=== PATIENT | male | born 1975 | race Caucasian/White ===

== ENCOUNTER 2017-11-29 14:12 | Emergency (ER) | payer OTHER ==
[~2017-11-29] VITALS: Ht 180.3 cm; Wt 74.8 kg
[~2017-11-29 14:12] MED LIST: ALBU90OI INH; ALBU90OI61 INH; AMOCLA875 PO; AMOX500 PO; AMOXICILLIN; AZIT250 PO; BENTYL20 MG PO; BENZ100A PO; Baclofen10 MG PO; Bactrim Ds Tab1 EACH PO; CEPH500 PO; CODGUAEL PO; CYCL10 PO; Cyclobenzaprine5 MG PO; DIAZ5 PO; DICY20 PO; FAMO40 PO; Flexeril 10 mg10 MG PO; GUAI120S1 PO; HYDACE25S PR; HYDACE5 PO; HYDR1TAB94 PO; IBUP200 PO; IBUP800 PO; METO5A PO; METR500 PO; Motrin600 MG PO; NAPR500 PO; NAPR550 PO; NO ROUTINE MEDS; Naprosyn500 MG PO; Norco 5-325 Ta1 EACH PO; OXYACE5T PO; PANT40 PO; PENVK500 PO; PERIDEX15 ML MM; PRED20 PO; PROM25 PO; PSEU120ER PO; Percocet 5-3251 EACH PO; Prednisone20 MG PO; Prilosec20 MG PO; RXHYDACE PO; RXOXYACE PO; RXTRAM50 PO; Robaxin-750750 MG PO; Robaxin500 MG PO; SPACER IH; SULTRIDS PO; SULTRISS PO; Sudogest30 MG PO; TRAM50 PO; Ultram50 MG PO; Veetids 500500 MG PO; Zofran Odt8 MG PO; [UNRECOGNIZED DRUG - REMARK]
[2017-11-29] MEDS ORDERED: KETO10 PO (14:50)
[2017-11-29] MEDS ORDERED: CYCL10 PO (14:50)
== END 2017-11-29 14:55 | disposition home or self-care (01) ==
LOC: ER 14:12
DX: S16.1XXA Strain of muscle, fascia and tendon at neck level, initial encounter (principal); S46.011A Strain of muscle(s) and tendon(s) of the rotator cuff of right shoulder, initial encounter; W18.30XA Fall on same level, unspecified, initial encounter; Z88.5 Allergy status to narcotic agent; Z88.8 Allergy status to other drugs, medicaments and biological substances; F17.210 Nicotine dependence, cigarettes, uncomplicated
CPT/HCPCS: 99283

== ENCOUNTER 2022-08-28 11:36 | Inpatient (IN) | payer OTHER ==
[~2022-08-28] VITALS: Ht 180.3 cm; Wt 86.6 kg
[~2022-08-28 11:36] MED LIST changes: +KETO10 PO
[2022-08-28 12:16] LABS: BASOPHILS ABSOLUTE AUTO 0.06 K/mm3 (0.00-0.23); BASOPHILS PERCENT AUTO 1 % (0-2); EOSINOPHILS PERCENT AUTO 2 % (0-6); Hematocrit 40.2 % (37.0-53.0); Hemoglobin 13.7 g/dL (13.5-17.5); IMMATURE GRAN ABSOLUTE AUTO 0.02 K/mm3 (0.00-0.10); IMMATURE GRAN PERCENT AUTO 0 % (0-1); LYMPHOCYTES ABSOLUTE AUTO 2.17 K/mm3 (0.84-5.20); LYMPHOCYTES PERCENT AUTO 34 % (21-46); MONOCYTES ABSOLUTE AUTO 0.43 K/mm3 (0.16-1.47); MONOCYTES PERCENT AUTO 7 % (4-13); Mean Corpuscular HGB 28.9 pg (26.0-34.0); Mean Corpuscular HGB Conc 34.1 g/dL (31.5-36.5); Mean Corpuscular Volume 85 fL (80-100); Mean Platelet Volume 12.2 fL (9.1-12.4); NEUTROPHILS ABSOLUTE AUTO 3.57 K/mm3 (1.96-9.15); NEUTROPHILS PERCENT AUTO 56 % (41-73); Platelet Count 229 K/mm3 (150-400); RDW Coefficient Variation 12.8 % (11.7-14.2); RDW Standard Deviation 39.5 fL (35.1-46.3); Red Blood Cell Count 4.74 M/mm3 (4.30-5.90); White Blood Cell Count 6.35 K/mm3 (4.00-11.30)
[2022-08-28 12:41] LABS: Magnesium, Blood 1.8 mg/dL (1.6-2.4)
[2022-08-28 12:48] LABS: Albumin, Blood 3.5 g/dL (3.4-5.0); Albumin/Globulin Ratio 0.9 (0.8-1.8); Bilirubin, Total 0.8 mg/dL (0.1-1.0); Bun/Creatinine Ratio 11.8 (12.0-20.0); Calcium, Blood 8.7 mg/dL (8.5-10.1); Creatinine, Blood 0.51 mg/dL (0.60-1.20); Globulin, Blood 3.8 g/dL (2.2-4.0); Potassium, Blood 2.8 mmol/L (3.5-5.5); Total Protein, Blood 7.3 g/dL (6.4-8.2)
[2022-08-28] MEDS ORDERED: METH40 PO (12:54)
[2022-08-28 13:15] LABS: Base Excess Venous 4.3 mmol/L; Bicarbonate Venous 27.9 mmol/L (24.0-30.0); PCO2 Venous 40.8 mmHg (38-42); pH Blood Venous 7.45 (7.34-7.37)
[2022-08-28 16:50] LABS: Calcium, Blood 8.8 mg/dL (8.5-10.1); Creatinine, Blood 0.5 mg/dL (0.60-1.20); Potassium, Blood 2.8 mmol/L (3.5-5.5)
[2022-08-28 20:59] VITALS: BP 116/55
[2022-08-28 23:51] VITALS: BP 120/75
[2022-08-29 03:26] VITALS: BP 119/89
[2022-08-29 03:42] LABS: Hematocrit 38.5 % (37.0-53.0); Hemoglobin 13.1 g/dL (13.5-17.5); Mean Corpuscular HGB 29.1 pg (26.0-34.0); Mean Corpuscular Volume 86 fL (80-100); Mean Platelet Volume 11.9 fL (9.1-12.4); Platelet Count 197 K/mm3 (150-400); RDW Coefficient Variation 13.2 % (11.7-14.2); RDW Standard Deviation 40.8 fL (35.1-46.3); White Blood Cell Count 6.22 K/mm3 (4.00-11.30)
[2022-08-29 04:12] LABS: Bun/Creatinine Ratio 12.4 (12.0-20.0); Calcium, Blood 8.3 mg/dL (8.5-10.1); Creatinine, Blood 0.4 mg/dL (0.60-1.20); Potassium, Blood 3.3 mmol/L (3.5-5.5)
--- NOTE | 2022-08-29 05:55 | NUR ---
SHIFT SUMMARY PT A&Ox4, VERY LETHARGIC, BUT COMMUNICATES NEEDS APPROPRIATELY. PT WEAK WHEN AMBULATING TO BATHROOM BUT INSISTS ON GOING INTO BATHROOM RATHER THAN USING BSC. PT 2 ASSIST TO GET AMBULATE. BP STABLE, SINUS 70's, DENIES CP/PRESSURE. SpO2> 92% RA, DENIES SOB. PT WITH A FEW OF HIS "SPASTIC" EPISODES IN HIS LEFT EXTREMITIES. PT ANNOYED THAT HE CAN'T GO OUTSIDE. NO OTHER EVENTS, WILL REPORT TO ONCOMIG SUSAN.
[2022-08-29 08:02] VITALS: BP 126/85
[2022-08-29] MEDS ORDERED: ASPI81CH PO (10:04)
[2022-08-29] MEDS ORDERED: GLIP5 PO (10:06)
[2022-08-29] MEDS ORDERED: METF500 PO (10:07)
[2022-08-29] MEDS ORDERED: POTCHL20ER PO (10:07)
[2022-08-29 11:03] VITALS: BP 130/93
--- NOTE | 2022-08-29 11:57 | NUR ---
DISCHARGE NOTE. PT VISITED BY DR GARCIA AND VERBALIZED WISHES TO DISCHARGE, ORDERS WERE PLACED. POWERGLIDE D/C, PT WAS EDUCATED ABOUT FOLLOWUP APPOINTMENTS, MEDICATIONS, DISEASE PROCESS OF DIABETES, SYMPTOMS OF STROKE ONSET, TO RETURN TO ED IF SYMPTOMS REOCCUR OR WORSEN, INSTRUCTED TO SCHEDULE FOLLOWUP CAROL ANN WITH PRIMARY CARE DOC, AND DIABETIC DIET. PT MEDICATIONS SENT TO PHARMACY AND PT WAS INSTRUCTED TO INFORMATION TECHNOLOGY INTERN. PT VERBALIZED UNDERSTANDING OF DISCHARGE ORDERS AND LEFT WITH ALL PERSONAL BELONGINGS. NO FURTHER DISCHARGE NEEDS IDENTIFIED AT THIS TIME. PT ABLE TO AMBULATE WITHOUT ASSISTANCE.
== END 2022-08-29 12:01 | disposition home or self-care (01) | DRG 638 ==
LOC: ER 11:36 → PCU 14:23
PROVIDERS: Emergency Medicine; Physician Assistant; ADMIT Internal Medicine
DX: E11.65 Type 2 diabetes mellitus with hyperglycemia (principal); S52.571A Other intraarticular fracture of lower end of right radius, initial encounter for closed fracture; E87.6 Hypokalemia; R29.818 Other symptoms and signs involving the nervous system; F15.10 Other stimulant abuse, uncomplicated; F17.200 Nicotine dependence, unspecified, uncomplicated; R63.1 Polydipsia; R35.89 Other polyuria; Z88.1 Allergy status to other antibiotic agents; Z88.8 Allergy status to other drugs, medicaments and biological substances; Z90.49 Acquired absence of other specified parts of digestive tract; Z79.891 Long term (current) use of opiate analgesic; Z87.442 Personal history of urinary calculi; X58.XXXA Exposure to other specified factors, initial encounter
CPT/HCPCS: 70450; 70551; 73100; 80048; 80053; 82010; 82803; 82947; 83036; 83735; 85025; 85027; 96361; 96365; 99285-25; A9270; C1751; J1650; J1815; J3480; J7030; J7050